=== PATIENT | female | born 1965 | race African-American/Black ===

== ENCOUNTER 2021-11-11 16:11 | Emergency (ER) | payer OTHER, MEDICAID ==
[~2021-11-11] VITALS: Ht 162.6 cm; Wt 90.7 kg
[2021-11-11] MEDS ORDERED: KETOROLAC TROMETH 60MG/2ML VIAL IM ONE (17:00)
[2021-11-11 17:16] VITALS: BP 138/85
[2021-11-11] MEDS ORDERED: TRAM-297 PO (17:52)
[2021-11-11] MEDS ORDERED: BACL10TA PO (17:53)
== END 2021-11-11 18:15 | disposition home or self-care (01) ==
LOC: ER 16:11 → EDBD 16:11 → ER 18:15
DX: S29.011A Strain of muscle and tendon of front wall of thorax, initial encounter (principal); S83.91XA Sprain of unspecified site of right knee, initial encounter; S40.021A Contusion of right upper arm, initial encounter; V43.62XA Car passenger injured in collision with other type car in traffic accident, initial encounter; Y93.89 Activity, other specified; Y92.488 Other paved roadways as the place of occurrence of the external cause; Y99.8 Other external cause status
CPT/HCPCS: 71101; 73562; 96372; 99284; J1885